=== PATIENT | male | born 1995 | race African-American/Black ===

== ENCOUNTER 2020-08-15 12:40 | Emergency (ER) | payer OTHER, SELFPAY ==
[2020-08-15 12:50] VITALS: BP 117/74; PULSE 71; RESP 16; TEMP 36.8; O2SAT 97; BMI 22.1
--- NOTE | 2020-08-15 13:56 | ED.EXTPRO ---
HPI - Extremity Problem General Chief complaint: Extremity Injury, Upper Stated complaint: laceration rt hand - work injury Time Seen by Provider: 08/15/20 13:26 Source: patient Mode of arrival: ambulatory Limitations: no limitations History of Present Illness HPI Narrative: 24 y/o male presenting to the ED with a laceration to his right middle finger that he sustained while at work. He reports he was working with a paper cutting machine and slipped and cut the middle knuckle of his middle finger. It was wrapped up right away and he was brought to the ER. Bleeding is controlled on arrival. He is not up to date with his tetanus shot. He denies numbness, tingling, and he has full ROM of the finger. MD Complaint: other (finger laceration ) Onset (ago): hour(s) (3) Pain Consistency: now resolved Location: right and upper extremity Quality: aching Radiation: none Relieving factors: nothing Exacerbating factors: range of motion and palpation Associated symptoms: denies other symptoms Related Data Allergies Allergy/AdvReac Type Severity Reaction Status Date / Time No Known Allergies Allergy Verified 08/15/20 12:53 Review of Systems Review of Systems: Constitutional: No Fever, No Chills Gastrointestinal: No Nausea, No Vomiting Musculoskeletal: + joint pain, No Myalgias Skin: + Skin Lesions, No rash Neuro: No Weakness, No Numbness Heme/Lymph: No Bruising PMFSH Past Medical History Attestation statement: The following information was validated with the patient. Medical History No known health problems Social History Social History Smoked in Last 30 Days: No Use of substances other than those prescribed or required for medical reasons: No Advance Directives: Yes Advance Directives Information Provided: No Advance Directives on File: No Physical Exam Vital Signs: Vital Signs: Last Vital Signs Temp 98.3 F 08/15/20 12:50 Pulse 71 08/15/20 12:50 Resp 16 08/15/20 12:50 BP 117/74 08/15/20 12:50 Pulse Ox 97 08/15/20 12:50 Body Mass Index 22.1 Appearance: Alert. Oriented X3. No acute distress. HEENT: normal inspection CVS: Normal heart rate and rhythm. Pulses normal. Respiratory: No respiratory distress. Skin: Skin warm and dry. Normal skin color. Normal skin turgor. No rashes. Extremities: right middle finger with linear (1cm) superficial laceration on PIP knuckle. NV intact distall. no active bleeding. normal ROM of finger. Neuro: Oriented X 3. No motor deficit. No sensory deficit. Course Course Course Narrative: 24 y/o male presenting with work related laceration to right middle finger. Very superficial no need for sutures. Wound was cleaned and irrigated. Dermabond and steri strips applied. Tdap given. Patient counseled. He is stable for discharge. Procedures Laceration Laceration 1: Site: hand Side (If applicable): right Size (cm): 1 Description: linear Depth: simple, single layer Pre-repair: irrigated extensively Skin layer closed with: other (Dermabond and steri-strips.) Critical Care Time Critical Care Time Critical Care Time: No Discharge Plan Discharge Clinical Impression: Laceration Patient Disposition: Home, Self-Care Instructions: Finger Laceration (ED), Skin Adhesive Care (ED) Additional Instructions: Try to minimize bending your finger to allow the laceration to heal. Keep clean and covered. You may wash briefly with soap and water tonight and then pat dry. Do not submerge in water. The Skin Glue & Steri-strips will fall off on its own in 7-10 days, do not peel off. Monitor for signs of infection including redness, warmth, swelling or drainage of pus. Referrals: [facility] [Provider Group] - 2 days Stand Alone Forms: Work/School Release Interventions: ED Discharge Assessment Last Done: 08/15/20 14:24 Discharge Date/Time: 08/15/20 14:26
== END 2020-08-15 14:26 | disposition home or self-care (01) ==
PROVIDERS: Emergency Provider Emergency Medicine
DX: S61.212A Laceration without foreign body of right middle finger without damage to nail, initial encounter (principal); W27.5XXA Contact with paper-cutter, initial encounter; Y93.9 Activity, unspecified; Y92.9 Unspecified place or not applicable; Y99.0 Civilian activity done for income or pay
CPT/HCPCS: 12001; 90471; 90715; 99283; 99284